=== PATIENT | female | born 1995 | race Caucasian/White ===

== ENCOUNTER 2018-07-07 10:37 | Emergency (ER) | payer OTHER ==
[2018-07-07 10:48] VITALS: BP 118/73
--- NOTE | 2018-07-07 10:50 | UC ---
Complaint Female HPI - HPI Summary HPI Summary: 23 yo female presents with urinary burning and pressure that began 2 days ago. She tells me that she has a history of UTIs and this feels the same. She took AZO otc with mild relief of symptoms. Denies fever, chills, abdominal pain, n/v/ d/c, flank pain, vaginal discharge/bleeding. - History Of Current Complaint Chief Complaint: UCGU Stated Complaint: URINARY COMPLAINT Time Seen by Provider: 07/07/18 10:49 Hx Obtained From: Patient Hx Last Menstrual Period: iud Onset/Duration: Sudden Onset Severity Initially: Mild Severity Currently: Moderate Pain Intensity: 6 Pain Scale Used: 0-10 Numeric - Allergies/Home Medications Allergies/Adverse Reactions: Allergies Allergy/AdvReac Type Severity Reaction Status Date / Time No Known Allergies Allergy Verified 07/07/18 10:48 PMH/Surg Hx/FS Hx/Imm Hx - Additional Past Medical History Additional PMH: None - Surgical History Surgical History: None - Family History Known Family History: Positive: None - Social History Occupation: Student Lives: Dormitory/Roommates Alcohol Use: Weekly Substance Use Type: None Smoking Status (MU): Never Smoked Tobacco Review of Systems Constitutional: Negative Skin: Negative Respiratory: Negative Cardiovascular: Negative Genitourinary: Dysuria, Frequency, Urgency Motor: Negative Neurovascular: Negative Neurological: Negative Psychological: Negative All Other Systems Reviewed And Are Negative: Yes Physical Exam - Summary Physical Exam Summary: GENERAL: NAD. WDWN. No pain distress. SKIN: No rashes, sores, lesions, or open wounds. NECK: Supple. Nontender. No lymphadenopathy. CHEST: CTAB. No r/r/w. No accessory muscle use. Breathing comfortably and in no distress. CV: RRR. Without m/r/g. Pulses intact. Cap refill <2seconds ABDOMEN: Soft. NTTP. No distention or guarding. No CVA tenderness. Bowel sounds present NEURO: Alert. PSYCH: Age appropriate behavior. Triage Information Reviewed: Yes Vital Signs: Initial Vital Signs Temp 97.6 F 07/07/18 10:44 Pulse 106 07/07/18 10:44 Resp 18 07/07/18 10:44 BP 118/73 07/07/18 10:44 Pulse Ox 98 07/07/18 10:44 Laboratory Tests 07/07/18 11:00 POC Urine Color [place] POC Urine Clarity Slightly cloudy POC Urine pH 5.5 POC Ur Specif [place] 1.015 POC Urine Protein Negative POC Ur Glucose (UA) Negative POC Urine Ketones Negative POC Urine Blood Negative POC Urine Nitrite Positive A POC Urine Bilirubin Negative POC Urine Urobilinogen 1.0 POC U Leukocyte Esteras Trace A Vital Signs Reviewed: Yes Complaint Female Dx - Course Course Of Treatment: UA with signs of infection. Will treat with macrobid and send urine for culture - Differential Dx/Diagnosis Provider Diagnoses: UTI Discharge - Sign-Out/Discharge Documenting (check all that apply): Patient Departure All imaging exams completed and their final reports reviewed: No Studies - Discharge Plan Condition: Stable Disposition: HOME Prescriptions: Nitrofurantoin Monohyd/M-Cryst [Macrobid 100 mg Capsule] 100 mg PO BID #10 cap Patient Education Materials: Urinary Tract Infection in Women (ED) Referrals: No Primary Care Phys,NOPCP [Primary Care Provider] - Additional Instructions: If you develop a fever, shortness of breath, chest pain, new or worsening symptoms - please call your PCP or go to the ED. - Billing Disposition and Condition Condition: STABLE Disposition: Home
== END 2018-07-07 11:14 | disposition home or self-care (01) ==
LOC: UCEAST 10:37
DX: N39.0 Urinary tract infection, site not specified (principal); Z87.440 Personal history of urinary (tract) infections
CPT/HCPCS: 81003; 87077; 87086; 87186; 99202; G0463

== ENCOUNTER 2018-08-10 20:43 | Emergency (ER) | payer OTHER ==
[2018-08-10 20:52] VITALS: BP 127/78
[2018-08-10] MEDS ORDERED: Acetaminophen TAB* 325 MG PO ONE (21:15)
--- NOTE | 2018-08-10 21:21 | ED ---
HPI Febrile Illness - HPI Summary HPI Summary: Patient here with acute onset fever, chills, headache, bilateral lower back pain as earlier today. She feels she's been getting progressively worse despite taking 2 rounds of 400 mg of ibuprofen. She denies URI symptoms such as sore throat, sneezing, coughing, nasal congestion however she does report a UTI diagnosed here last week. This started as severe lower pelvic cramping and pressure that progressed to her bilateral lower pelvic region. She did not have dysuria, urgency or frequency however she's had UTIs in the past and when she came here for evaluation was started on Bactrim. Her micro-report reveals Bactrim was effective against antibiotic. She admits she did feel better in regards to those symptoms and even still today denies dysuria, urgency, frequency. Additionally, she denies vaginal discharge or irritation. She is a college student admits she has been around people however she does not have any symptoms like they do. Denies nausea, vomiting, diarrhea however appetite is been depressed today. - History of Current Complaint Chief Complaint: UCAbdominalPain Time Seen by Provider: 08/10/18 20:47 Hx Obtained From: Patient, Family/Grape Cutter - male snow removal/plowing Hx Last Menstrual Period: iud Pain Intensity: 8 - Allergy/Home Medications Allergies/Adverse Reactions: Allergies Allergy/AdvReac Type Severity Reaction Status Date / Time No Known Allergies Allergy Verified 08/10/18 22:24 PMH/Surg Hx/FS Hx/Imm Hx Previously Healthy: Yes Infectious Disease History: No Infectious Disease History: Denies: Traveled Outside the [place] in Last 30 Days - Family History Known Family History: Positive: None - Social History Occupation: Student Lives: Dormitory/Roommates Alcohol Use: Weekly Hx Substance Use: No Substance Use Type: Reports: None Hx Tobacco Use: No Smoking Status (MU): Never Smoked Tobacco Review of Systems Positive: Fever, Chills Eyes: Negative ENT: Negative Cardiovascular: Negative Respiratory: Negative Gastrointestinal: Negative Positive: see HPI Skin: Negative Positive: Headache. Negative: Weakness, Paresthesia, Numbness, Syncope, Slurred Speech Psychological: Normal All Other Systems Reviewed And Are Negative: Yes Physical Exam Triage Information Reviewed: Yes Vital Signs On Initial Exam: Initial Vitals Temp Pulse Resp BP Pulse Ox 102.3 F 128 18 127/78 100 08/10/18 20:45 08/10/18 20:45 08/10/18 20:45 08/10/18 20:45 08/10/18 20:45 Vital Signs Reviewed: Yes Appearance: Positive: Well-Nourished, Ill-Appearing - shivering, pleasant Skin: Positive: Warm, Skin Color Reflects Adequate Perfusion, Dry - feverish to touch - no rash Head/Face: Positive: Normal Head/Face Inspection Eyes: Positive: Normal, EOMI, Conjunctiva Clear - sclera injected ENT: Positive: Normal ENT inspection, Hearing grossly normal, Pharynx normal - mucosa moist Neck: Positive: Supple, Nontender, No Lymphadenopathy Respiratory/Lung Sounds: Positive: Clear to Auscultation, Breath Sounds Present. Negative: Rales, Rhonchi, Wheezes Cardiovascular: Positive: Tachycardia, S1, S2. Negative: Murmur, Rub Abdomen Description: Positive: No Organomegaly, Soft, CVA Tenderness (R), CVA Tenderness (L), Other: - lower ab TTP - no rebounding Bowel Sounds: Positive: Present Pelvic Exam: Positive: Other - deferred Musculoskeletal: Positive: Normal, Strength/ROM Intact Neurological: Positive: Normal, Sensory/Motor Intact, Alert, Oriented to Person Place, Time, CN Intact II-III Psychiatric: Positive: Normal - concerned but in good spirits Diagnostics - Vital Signs Vital Signs Temp Pulse Resp BP Pulse Ox 08/10/18 20:45 102.3 F 128 18 127/78 100 - Laboratory Lab Statement: Any lab studies that have been ordered have been reviewed, and results considered in the medical decision making process. Course/Dx - Course Course Of Treatment: Suspect systemic infection from recent UTI, possibly pyelonephritis w/ flank pain - provided with PO acetaminophen and offered ambulance - pt will take PC via male snow removal/plowing. Vitals are concerning for possible sepsis - diff dx: viral syndrome. Spoke w/ Dianelys Ruiz PA-C at ED. Pt is stable at time of d/c. NOTE: although micro from recent UTI reveals sens to bactrim, it was ranked at <= 20. See report for details. - Diagnoses Provider Diagnoses: Fever Discharge - Sign-Out/Discharge Documenting (check all that apply): Patient Departure All imaging exams completed and their final reports reviewed: No Studies - Discharge Plan Condition: Stable Disposition: HOME-RECOMMEND TO ED Referrals: [facility] [Primary Care Provider] - Additional Instructions: Go directly to ED - Billing Disposition and Condition Condition: STABLE Disposition: Home-Recommend to ED - Attestation Statements Provider Attestation: I was available for consult. This patient was seen by the [facility]. The patient was not presented to, seen by, or examined by me. -Al
== END 2018-08-10 21:27 | disposition home health service (06) ==
LOC: UCEAST 20:43
DX: R50.9 Fever, unspecified (principal); R51 Headache; M54.5 Low back pain; R10.9 Unspecified abdominal pain
CPT/HCPCS: 99212; A9270-GY; G0463

== ENCOUNTER 2018-08-10 21:51 | Emergency (ER) | payer OTHER ==
[2018-08-10] MEDS ORDERED: NS 0.9% 1000 ML*IV.FLUID IV ONE (22:13)
[2018-08-10] MEDS ORDERED: cefTRIAXone(*) 1 GM in NS 0.9% 50 ML* 50 ML IVPB ONE (22:39)
[2018-08-10 23:21] LABS: ABS Basophils 0 10^3/ul (0-0.2); ABS Eosinophils 0.2 10^3/ul (0-0.6); ABS Lymphocytes 0.6 10^3/ul (1.0-4.8); ABS Monocytes 0.3 10^3/ul (0-0.8); ABS Neutrophils 2.9 10^3/ul (1.5-7.7); ABS Nucleated RBC 0 10^3/ul; Eosinophil % 4.6 % (0-6); Hematocrit 36 % (35-47); Hemoglobin 12.2 g/dl (12.0-16.0); Lymphocyte % 15.7 % (25-47); Mean Corpuscular HGB Conc 34 g/dl (31-36); Mean Corpuscular Hemoglobin 30 pg (27-31); Mean Corpuscular Volume 87 fL (80-97); Mean Platelet Volume 7.4 um3 (7.4-10.4); Nucleated Red Blood Cells % 0.1; Platelet Count 181 10^3/ul (150-450); Red Blood Count 4.11 10^6/ul (4.00-5.40); Red Cell Distribution Width 13 % (10.5-15)
--- NOTE | 2018-08-10 23:31 | RAD ---
EXAM: US Retroperitoneal Limited, Kidneys. EXAM DATE/TIME: 08/10/2018 11:00 PM CLINICAL HISTORY: 23 years old, female; Pain; Abdominal pain; Flank; Right; Additional info: Bilateral flank pain TECHNIQUE: Real-time ultrasound of the retroperitoneum with image documentation. Examination was focused on the kidneys. COMPARISON: No relevant prior studies available. FINDINGS: Right kidney: Right kidney measures 11.1 x 5.1 x 4.3 cm (127 cc). No solid cortical lesions, calculi, or pelvocaliectasis. Left kidney: Left kidney measures 11.7 x 5.4 x 4.9 cm (162 cc). Normal size and echogenicity with no masses. Normal follicles. Normal arterial and venous waveforms. IMPRESSION: Sonographically normal kidneys. To contact [facility] with a general question: Operations Center - [phone] For direct physician to physician contact: Physician Hotline - [phone] [facility] ([facility] Facility ID #[id number])
[2018-08-10 23:39] LABS: EGFR Non-African American 77.1 (>60)
[2018-08-11 00:22] LABS: Urine Appearance Clear; Urine Blood Negative (Negative); Urine Color Yellow; Urine Ketones Negative (Negative); Urine Protein Negative (Negative); Urine Urobilinogen Negative (Negative)
[2018-08-11] MEDS ORDERED: Ibuprofen TAB* 600 MG PO ONE (00:31)
--- NOTE | 2018-08-11 01:41 | ED ---
HPI Febrile Illness - HPI Summary HPI Summary: 23-year-old female presents with fever since this afternoon. She states that she is also been having some flank pain. She states she gets occasional pain into her legs. She states she feels very achy. No abdominal pain. No nausea no vomiting. No diarrhea constipation. She states treated for UTI infection. She still states her last dose of bactrim is today. bactrim was sensitive. She states she was seen in urgent care and given Tylenol prior to arrival. She denies any chest pain or shortness breath. No cough. No sinus congestion or sore throat. No headache. She denies any history of kidney infections. No medical conditions. no history of back sugeries or IV drug use. no saddle anasethesia or loss of bowel or bladder. no difficulties ambulating. no neck pain. no photophobia. no urinary symptoms. no abnormal vaginal discharge. - History of Current Complaint Chief Complaint: EDGeneral Time Seen by Provider: 08/10/18 22:13 Hx Last Menstrual Period: iud Pain Intensity: 6 - Allergy/Home Medications Allergies/Adverse Reactions: Allergies Allergy/AdvReac Type Severity Reaction Status Date / Time No Known Allergies Allergy Verified 08/10/18 22:24 PMH/Surg Hx/FS Hx/Imm Hx Endocrine/Hematology History: Denies: Hx Anticoagulant Therapy Respiratory History: Denies: Hx Asthma - Immunization History Date of Tetanus Vaccine: utd Date of Influenza Vaccine: 07/2018 Infectious Disease History: No Infectious Disease History: Denies: Traveled Outside the US in Last 30 Days - Family History Known Family History: Positive: None - Social History Alcohol Use: Weekly Hx Substance Use: No Substance Use Type: Reports: None Hx Tobacco Use: No Smoking Status (MU): Never Smoked Tobacco Review of Systems Positive: Fever Negative: Chest Pain Negative: Shortness Of Breath Negative: Abdominal Pain Positive: flank pain All Other Systems Reviewed And Are Negative: Yes Physical Exam Triage Information Reviewed: Yes Vital Signs On Initial Exam: Initial Vitals Temp Pulse Resp BP Pulse Ox 98.7 F 134 18 114/68 97 08/10/18 21:53 08/10/18 21:53 08/10/18 21:53 08/10/18 21:53 08/10/18 21:53 Vital Signs Reviewed: Yes Appearance: Positive: Well-Appearing Skin: Positive: Warm, Dry Head/Face: Positive: Normal Head/Face Inspection Eyes: Positive: Normal, EOMI, BRITT, Conjunctiva Clear ENT: Positive: Normal ENT inspection, Pharynx normal, TMs normal Neck: Positive: Supple, Nontender, No Lymphadenopathy Respiratory/Lung Sounds: Positive: Clear to Auscultation, Breath Sounds Present Cardiovascular: Positive: Normal, RRR Abdomen Description: Positive: Nontender, Soft, CVA Tenderness (R), CVA Tenderness (L) Bowel Sounds: Positive: Present Musculoskeletal: Positive: Normal Neurological: Positive: Normal, Babinski Bilateral - normal Psychiatric: Positive: Normal Diagnostics - Vital Signs Vital Signs Temp Pulse Resp BP Pulse Ox 08/11/18 00:29 110 20 95/55 100 08/11/18 00:27 110 20 64/46 96 08/11/18 00:06 115 100 08/10/18 23:54 98 31 103/70 98 08/10/18 23:28 101 19 97 08/10/18 23:23 102 22 105/62 96 08/10/18 23:00 106 20 97 08/10/18 22:53 102 17 98/45 96 08/10/18 22:27 118 16 97/58 97 08/10/18 22:19 223 98 08/10/18 21:53 98.7 F 134 18 114/68 97 - Laboratory Lab Results: Lab Results 08/10/18 08/10/18 08/10/18 Range/Units 23:13 23:13 23:13 WBC 4.0 (3.5-10.8) 10^3/ul RBC 4.11 (4.00-5.40) 10^6/ul Hgb 12.2 (12.0-16.0) g/dl Hct 36 (35-47) % MCV 87 (80-97) fL MCH 30 (27-31) pg MCHC 34 (31-36) g/dl RDW 13 (10.5-15) % Plt Count 181 (150-450) 10^3/ul MPV 7.4 (7.4-10.4) um3 Neut % (Auto) 71.6 (38-83) % Lymph % (Auto) 15.7 L (25-47) % [place] % (Auto) 8.0 H (0-7) % Eos % (Auto) 4.6 (0-6) % Baso % (Auto) 0.1 (0-2) % Absolute Neuts (auto) 2.9 (1.5-7.7) 10^3/ul Absolute Lymphs (auto) 0.6 L (1.0-4.8) 10^3/ul Absolute Monos (auto) 0.3 (0-0.8) 10^3/ul Absolute Eos (auto) 0.2 (0-0.6) 10^3/ul Absolute Basos (auto) 0 (0-0.2) 10^3/ul Absolute Nucleated RBC 0 10^3/ul Nucleated RBC % 0.1 Sodium 135 (135-145) mmol/L Potassium 3.6 (3.5-5.0) mmol/L Chloride 106 (101-111) mmol/L Carbon Dioxide 23 (22-32) mmol/L Anion Gap 6 (2-11) mmol/L BUN 16 (6-24) mg/dL Creatinine 0.92 (0.51-0.95) mg/dL Est GFR ( Amer) 93.2 (>60) Est GFR (Non-Af Amer) 77.1 (>60) BUN/Creatinine Ratio 17.4 (8-20) Glucose 98 (70-100) mg/dL Lactic Acid 0.6 (0.5-2.0) mmol/L Calcium 8.7 (8.6-10.3) mg/dL Total Bilirubin 0.60 (0.2-1.0) mg/dL AST 17 (13-39) U/L ALT 16 (7-52) U/L Alkaline Phosphatase 59 (34-104) U/L C-Reactive Protein 14.08 H (<8.01) mg/L Total Protein 6.4 (6.4-8.9) g/dL Albumin 3.8 (3.2-5.2) g/dL Globulin 2.6 (2-4) g/dL Albumin/Globulin Ratio 1.5 (1-3) Procalcitonin (<0.6) ng/mL Beta HCG, Quant < 0.60 mIU/mL Urine Color Urine Appearance Urine pH (5-9) Ur Specific [place] (1.010-1.030) Urine Protein (Negative) Urine Ketones (Negative) Urine Blood (Negative) Urine Nitrate (Negative) Urine Bilirubin (Negative) Urine Urobilinogen (Negative) Ur Leukocyte Esterase (Negative) Urine Glucose (Negative) Monoscreen (Negative) Influenza A (Rapid) (Negative) Influenza B (Rapid) (Negative) 08/10/18 08/10/18 08/11/18 Range/Units 23:13 23:13 00:03 WBC (3.5-10.8) 10^3/ul RBC (4.00-5.40) 10^6/ul Hgb (12.0-16.0) g/dl Hct (35-47) % MCV (80-97) fL MCH (27-31) pg MCHC (31-36) g/dl RDW (10.5-15) % Plt Count (150-450) 10^3/ul MPV (7.4-10.4) um3 Neut % (Auto) (38-83) % Lymph % (Auto) (25-47) % [place] % (Auto) (0-7) % Eos % (Auto) (0-6) % Baso % (Auto) (0-2) % Absolute Neuts (auto) (1.5-7.7) 10^3/ul Absolute Lymphs (auto) (1.0-4.8) 10^3/ul Absolute Monos (auto) (0-0.8) 10^3/ul Absolute Eos (auto) (0-0.6) 10^3/ul Absolute Basos (auto) (0-0.2) 10^3/ul Absolute Nucleated RBC 10^3/ul Nucleated RBC % Sodium (135-145) mmol/L Potassium (3.5-5.0) mmol/L Chloride (101-111) mmol/L Carbon Dioxide (22-32) mmol/L Anion Gap (2-11) mmol/L BUN (6-24) mg/dL Creatinine (0.51-0.95) mg/dL Est GFR ( Amer) (>60) Est GFR (Non-Af Amer) (>60) BUN/Creatinine Ratio (8-20) Glucose (70-100) mg/dL Lactic Acid (0.5-2.0) mmol/L Calcium (8.6-10.3) mg/dL Total Bilirubin (0.2-1.0) mg/dL AST (13-39) U/L ALT (7-52) U/L Alkaline Phosphatase (34-104) U/L C-Reactive Protein (<8.01) mg/L Total Protein (6.4-8.9) g/dL Albumin (3.2-5.2) g/dL Globulin (2-4) g/dL Albumin/Globulin Ratio (1-3) Procalcitonin < 0.1 (<0.6) ng/mL Beta HCG, Quant mIU/mL Urine Color Yellow Urine Appearance Clear Urine pH 7.0 (5-9) Ur Specific [place] 1.010 (1.010-1.030) Urine Protein Negative (Negative) Urine Ketones Negative (Negative) Urine Blood Negative (Negative) Urine Nitrate Negative (Negative) Urine Bilirubin Negative (Negative) Urine Urobilinogen Negative (Negative) Ur Leukocyte Esterase Negative (Negative) Urine Glucose Negative (Negative) Monoscreen Negative (Negative) Influenza A (Rapid) (Negative) Influenza B (Rapid) (Negative) 08/11/18 Range/Units 00:13 WBC (3.5-10.8) 10^3/ul RBC (4.00-5.40) 10^6/ul Hgb (12.0-16.0) g/dl Hct (35-47) % MCV (80-97) fL MCH (27-31) pg MCHC (31-36) g/dl RDW (10.5-15) % Plt Count (150-450) 10^3/ul MPV (7.4-10.4) um3 Neut % (Auto) (38-83) % Lymph % (Auto) (25-47) % [place] % (Auto) (0-7) % Eos % (Auto) (0-6) % Baso % (Auto) (0-2) % Absolute Neuts (auto) (1.5-7.7) 10^3/ul Absolute Lymphs (auto) (1.0-4.8) 10^3/ul Absolute Monos (auto) (0-0.8) 10^3/ul Absolute Eos (auto) (0-0.6) 10^3/ul Absolute Basos (auto) (0-0.2) 10^3/ul Absolute Nucleated RBC 10^3/ul Nucleated RBC % Sodium (135-145) mmol/L Potassium (3.5-5.0) mmol/L Chloride (101-111) mmol/L Carbon Dioxide (22-32) mmol/L Anion Gap (2-11) mmol/L BUN (6-24) mg/dL Creatinine (0.51-0.95) mg/dL Est GFR ( Amer) (>60) Est GFR (Non-Af Amer) (>60) BUN/Creatinine Ratio (8-20) Glucose (70-100) mg/dL Lactic Acid (0.5-2.0) mmol/L Calcium (8.6-10.3) mg/dL Total Bilirubin (0.2-1.0) mg/dL AST (13-39) U/L ALT (7-52) U/L Alkaline Phosphatase (34-104) U/L C-Reactive Protein (<8.01) mg/L Total Protein (6.4-8.9) g/dL Albumin (3.2-5.2) g/dL Globulin (2-4) g/dL Albumin/Globulin Ratio (1-3) Procalcitonin (<0.6) ng/mL Beta HCG, Quant mIU/mL Urine Color Urine Appearance Urine pH (5-9) Ur Specific [place] (1.010-1.030) Urine Protein (Negative) Urine Ketones (Negative) Urine Blood (Negative) Urine Nitrate (Negative) Urine Bilirubin (Negative) Urine Urobilinogen (Negative) Ur Leukocyte Esterase (Negative) Urine Glucose (Negative) Monoscreen (Negative) Influenza A (Rapid) Negative (Negative) Influenza B (Rapid) Negative (Negative) Result Diagrams: 08/10/18 23:13 08/10/18 23:13 Lab Statement: Any lab studies that have been ordered have been reviewed, and results considered in the medical decision making process. - Radiology chest Radiology Interpretation Completed By: ED Physician Summary of Radiographic Findings: no pneumonia Course/Dx - Course Course Of Treatment: 23-year-old female presents with fever since this afternoon. She states that she is also been having some flank pain. She states she gets occasional pain into her legs. She states she feels very achy. No abdominal pain. No nausea no vomiting. No diarrhea constipation. She states treated for UTI infection. She still states her last dose of bactrim is today. bactrim was sensitive. She states she was seen in urgent care and given Tylenol prior to arrival. She denies any chest pain or shortness breath. No cough. No sinus congestion or sore throat. No headache. She denies any history of kidney infections. No medical conditions. no history of back sugeries or IV drug use. no saddle anasethesia or loss of bowel or bladder. no difficulties ambulating. no neck pain. no photophobia. On exam tenderness to bilateral flanks. Nontender abdomen. Lungs clear to auscultation. Chest x- ray read by me as normal. Labs white blood count normal. CRP elevated. procalcontin and lactic normal. Urine shows no infection. Gave fluids and ibuprofen and tachycardia persists. Discuss case with Dr. Hicks says is likely either viral or could be reaction to the Bactrim. Told to stop the Bactrim. Told to continue Tylenol ibuprofen. Told if anything changes to return to ED. Patient understands agrees with plan. - Febrile Illness Differential Diagnoses: Pneumonia, Pyelonephritis, Viremia - Diagnoses Provider Diagnoses: Fever Discharge - Sign-Out/Discharge Documenting (check all that apply): Patient Departure - Discharge Plan Condition: Good Disposition: HOME Patient Education Materials: Fever in Adults (ED) Referrals: [facility] [Primary Care Provider] - Additional Instructions: follow up with [facility] within 2 days Return to ED if develop any new or worsening symptoms Take tyenlol or ibuprofen every 6 hours for fever - Billing Disposition and Condition Condition: GOOD Disposition: Home
[2018-08-11 01:51] VITALS: BP 95/49
--- NOTE | 2018-08-11 08:12 | RAD ---
Indication: Fever. 2 views of the chest including dual energy PA views demonstrate no mediastinal shift. Heart is of normal size and configuration. Lung buchanan are clear. No prior study is available for comparison. IMPRESSION: No active cardiopulmonary disease is noted. R0
== END 2018-08-11 01:51 | disposition home or self-care (01) ==
LOC: ED 21:51
DX: R50.9 Fever, unspecified (principal); R10.84 Generalized abdominal pain
CPT/HCPCS: 36415; 71046; 76775; 80053; 81003; 83605; 84145; 84702; 85025; 86140; 86308; 87040; 96365; 99283; A9270-GY; J0696

== ENCOUNTER 2018-11-24 19:09 | Emergency (ER) | payer OTHER ==
[2018-11-24 19:20] VITALS: BP 109/73
--- NOTE | 2018-11-24 20:18 | UC ---
Complaint Female HPI - HPI Summary HPI Summary: The patient is a 23-year-old female with about a 12 hour history of dysuria urgency and frequency. No fever or chills. No nausea or vomiting. No vaginal discharge or itching. History of pyleo or kidney stones. - History Of Current Complaint Chief Complaint: UCGU Stated Complaint: UTI Hx Obtained From: Patient Hx Last Menstrual Period: 11/13/18 Onset/Duration: Gradual Onset, Lasting Hours Timing: Constant Severity Initially: Mild Severity Currently: Moderate Pain Intensity: 7 - when urinating Pain Scale Used: 0-10 Numeric Character: Burning Aggravating Factor(s): Urination Associated Signs And Symptoms: Negative: Fever, Back Pain, Vaginal Bleeding/ Discharge, Vaginal Discharge, Nausea, Vomiting(# Of Episodes =), Genital Swelling, Genital Blisters, Retained Foregin Body (Specify) Related Hx: Similar Episode/Dx as: - UTI - Allergies/Home Medications Allergies/Adverse Reactions: Allergies Allergy/AdvReac Type Severity Reaction Status Date / Time Sulfa (Sulfonamide Allergy Rash Verified 11/24/18 19:20 Antibiotics) PMH/Surg Hx/FS Hx/Imm Hx Previously Healthy: Yes Other History Of: Negative For: Anticoagulant Therapy - Surgical History Surgical History: None - Family History Known Family History: Positive: Hypertension - Social History Alcohol Use: Weekly Substance Use Type: None Substance Use Comment - Amount & Last Used: very occasional Smoking Status (MU): Never Smoked Tobacco Review of Systems All Other Systems Reviewed And Are Negative: Yes Constitutional: Positive: Negative Skin: Positive: Negative Eyes: Positive: Negative ENT: Positive: Negative Respiratory: Positive: Negative Cardiovascular: Positive: Negative Gastrointestinal: Positive: Negative Genitourinary: Positive: Dysuria, Frequency, Urgency Motor: Positive: Negative Neurovascular: Positive: Negative Musculoskeletal: Positive: Negative Neurological: Positive: Negative Psychological: Positive: Negative Physical Exam Triage Information Reviewed: Yes Appearance: Well-Appearing, No Pain Distress, Well-Nourished Vital Signs: Initial Vital Signs Temp 97 F 11/24/18 19:17 Pulse 73 11/24/18 19:17 Resp 18 11/24/18 19:17 BP 109/73 11/24/18 19:17 Pulse Ox 100 11/24/18 19:17 Vital Signs Reviewed: Yes Eyes: Positive: Conjunctiva Clear ENT: Positive: Hearing grossly normal. Negative: Pharyngeal erythema, Nasal congestion, Nasal drainage, Tonsillar exudate, Trismus, Muffled voice, Hoarse voice Neck: Positive: Supple, Nontender Respiratory: Positive: Lungs clear, Normal breath sounds, No respiratory distress, No accessory muscle use Cardiovascular: Positive: RRR, No Murmur Abdomen Description: Positive: Nontender, No Organomegaly. Negative: CVA Tenderness (R), CVA Tenderness (L) Bowel Sounds: Positive: Present Musculoskeletal: Positive: ROM Intact Neurological: Positive: Alert Psychological Exam: Normal Skin Exam: Normal Complaint Female Dx - Differential Dx/Diagnosis Provider Diagnosis: UTI (urinary tract infection) Discharge - Sign-Out/Discharge Documenting (check all that apply): Patient Departure All imaging exams completed and their final reports reviewed: No Studies - Discharge Plan Condition: Stable Disposition: HOME Prescriptions: Cephalexin CAP* [Keflex CAP*] 500 mg PO BID #10 cap Phenazopyridine TAB* [Pyridium TAB*] 100 mg PO TID #6 tab Patient Education Materials: Urinary Tract Infection in Women (ED) Referrals: No Primary Care Phys,NOPCP [Primary Care Provider] - Additional Instructions: recheck in 2 days if not better a culture is pending - Billing Disposition and Condition Condition: STABLE Disposition: Home
[2018-11-24] MEDS ORDERED: Cephalexin CAP* 500 MG PO ONE (20:25)
[2018-11-24] MEDS ORDERED: Phenazopyridine TAB* 100 MG PO ONE (20:25)
--- NOTE | 2018-11-26 17:06 | UC ---
- Progress Note Progress Note: 11/26/2018 Urine culture positive for E.Coli Pt Rx Keflex PO which cover it Final sensitivity reports still pending No change Pura Lobato PA-C Course/Dx - Diagnoses Provider Diagnoses: UTI (urinary tract infection) Discharge - Sign-Out/Discharge Documenting (check all that apply): Patient Departure - d/c home All imaging exams completed and their final reports reviewed: No Studies - Discharge Plan Condition: Stable Disposition: HOME Prescriptions: Cephalexin CAP* [Keflex CAP*] 500 mg PO BID #10 cap Phenazopyridine TAB* [Pyridium TAB*] 100 mg PO TID #6 tab Patient Education Materials: Urinary Tract Infection in Women (ED) Referrals: No Primary Care Phys,NOPCP [Primary Care Provider] - Additional Instructions: recheck in 2 days if not better a culture is pending - Billing Disposition and Condition Condition: STABLE Disposition: Home
== END 2018-11-24 20:37 | disposition home or self-care (01) ==
LOC: UCEAST 19:09
DX: N39.0 Urinary tract infection, site not specified (principal); Z88.2 Allergy status to sulfonamides
CPT/HCPCS: 81003; 87077; 87086; 87186; 99212; A9270-GY; G0463

== ENCOUNTER 2019-01-07 21:32 | Emergency (ER) | payer OTHER ==
[2019-01-07 21:47] VITALS: BP 118/86
--- NOTE | 2019-01-07 21:49 | UC ---
Complaint Female HPI - HPI Summary HPI Summary: 23-year-old woman comes in with a chief complaint of burning with urination and increased urinary frequency for this last several hours. She does have some suprapubic discomfort. Also some discomfort in the low back. No flank pain. No fever. She's having her period now. Denies any concern of STI. - History Of Current Complaint Stated Complaint: FREQUENT URINATION Time Seen by Provider: 01/07/19 21:39 Hx Last Menstrual Period: 11/13/18 - Allergies/Home Medications Allergies/Adverse Reactions: Allergies Allergy/AdvReac Type Severity Reaction Status Date / Time Sulfa (Sulfonamide Allergy Rash Verified 01/07/19 21:47 Antibiotics) Home Medications: Home Medications Ibuprofen TAB* [Advil TAB*] 400 mg PO PRN 01/07/19 [History] PMH/Surg Hx/FS Hx/Imm Hx Previously Healthy: Yes Other History Of: Negative For: Anticoagulant Therapy - Surgical History Surgical History: None - Family History Known Family History: Positive: None, Hypertension - Social History Alcohol Use: Weekly Substance Use Type: None Substance Use Comment - Amount & Last Used: very occasional Smoking Status (MU): Never Smoked Tobacco Review of Systems All Other Systems Reviewed And Are Negative: Yes Constitutional: Positive: Negative Skin: Positive: Negative Eyes: Positive: Negative ENT: Positive: Negative Respiratory: Positive: Negative Cardiovascular: Positive: Negative Gastrointestinal: Positive: Abdominal Pain Genitourinary: Positive: Dysuria, Frequency, Urgency Motor: Positive: Negative Neurovascular: Positive: Negative Musculoskeletal: Positive: Negative Neurological: Positive: Negative Psychological: Positive: Negative Is Patient Immunocompromised?: No Physical Exam Triage Information Reviewed: Yes Appearance: Well-Appearing, No Pain Distress, Well-Nourished Vital Signs Reviewed: Yes Eye Exam: Normal Eyes: Positive: Conjunctiva Clear Neck exam: Normal Neck: Positive: Supple Respiratory: Positive: Lungs clear, Normal breath sounds, No respiratory distress Cardiovascular: Positive: RRR Abdomen Description: Positive: Other: - MILD SUPRAPUBIC TENDERNESS. Negative: CVA Tenderness (R), CVA Tenderness (L) Musculoskeletal Exam: Normal Musculoskeletal: Positive: Strength Intact, ROM Intact Neurological Exam: Normal Neurological: Positive: Alert, Muscle Tone Normal Psychological Exam: Normal Psychological: Positive: Age Appropriate Behavior Skin Exam: Normal Complaint Female Dx - Differential Dx/Diagnosis Provider Diagnosis: UTI (urinary tract infection) Discharge - Sign-Out/Discharge Documenting (check all that apply): Patient Departure All imaging exams completed and their final reports reviewed: No Studies - Discharge Plan Condition: Stable Disposition: HOME Prescriptions: Cephalexin CAP* [Keflex CAP*] 500 mg PO BID #8 cap Patient Education Materials: Urinary Tract Infection in Women (ED) Referrals: [facility] @ [Outside] Additional Instructions: FOLLOW UP WITH YOUR DOCTOR IF NOT COMPLETELY IMPROVED. GET REEVALUATED SOONER IF YOUR CONDITION WORSENS OR ANY QUESTIONS OR CONCERNS. - Billing Disposition and Condition Condition: STABLE Disposition: Home
[2019-01-07] MEDS ORDERED: Cephalexin CAP* 500 MG PO ONE ×2 (21:51→21:52)
--- NOTE | 2019-01-10 16:26 | UC ---
- Progress Note Progress Note: 01/10/2019 Urine culture: positive for E.coli Pt Rx Kelflex PO Final reports shows sensitivity for Kelflex PO No change Pura Lobato PA-C Course/Dx - Diagnoses Provider Diagnoses: UTI (urinary tract infection) Discharge - Sign-Out/Discharge Documenting (check all that apply): Post-Discharge Follow Up All imaging exams completed and their final reports reviewed: No Studies - Discharge Plan Condition: Stable Disposition: HOME Prescriptions: Cephalexin CAP* [Keflex CAP*] 500 mg PO BID #8 cap Patient Education Materials: Urinary Tract Infection in Women (ED) Referrals: [facility] @ [Outside] Additional Instructions: FOLLOW UP WITH YOUR DOCTOR IF NOT COMPLETELY IMPROVED. GET REEVALUATED SOONER IF YOUR CONDITION WORSENS OR ANY QUESTIONS OR CONCERNS. - Billing Disposition and Condition Condition: STABLE Disposition: Home
== END 2019-01-07 22:10 | disposition home or self-care (01) ==
LOC: UCEAST 21:32
DX: N39.0 Urinary tract infection, site not specified (principal); Z88.2 Allergy status to sulfonamides
CPT/HCPCS: 81003; 84702; 87077; 87086; 87186; 99212; A9270-GY; G0463

== ENCOUNTER 2019-08-01 07:26 | Emergency (ER) | payer OTHER ==
[2019-08-01 07:39] VITALS: BP 136/72
[2019-08-01] MEDS ORDERED: Dexamethasone IV* 4 MG/ML 1 ML (4 MG) IM ONE (08:11)
[2019-08-01] MEDS ORDERED: Cyclobenzaprine TAB* 10 MG PO ONE (08:11)
[2019-08-01] MEDS ORDERED: Ketorolac *IM* INJ* 60 MG/2 ML VIAL IM ONE (08:11)
--- NOTE | 2019-08-01 08:18 | UC ---
Back Pain HPI - HPI Summary HPI Summary: This patient is a 24-year-old female who presents to the urgent care with a chief complaint of back pain. She reports that couple days, she was working on the gym since then the patient is having back pain which is worse today. The pain is in the lumbar region and it radiates to her gluteus and lower extremity. She denies any numbness, denies any weakness she is able to ambulate which she makes her feel better. He becomes worse when she bends over or when she stands up. She denies any fever, or any other symptom. - History of Current Complaint Chief Complaint: UCBackPain Stated Complaint: BACK PAIN Time Seen by Provider: 08/01/19 07:43 Hx Obtained From: Patient Hx Last Menstrual Period: 07/07/19 ?: No Onset/Duration: Gradual Onset Timing: Constant Severity Initially: Mild Severity Currently: Moderate Pain Intensity: 6 - Allergies/Home Medications Allergies/Adverse Reactions: Allergies Allergy/AdvReac Type Severity Reaction Status Date / Time Sulfa (Sulfonamide Allergy Rash Verified 08/01/19 07:39 Antibiotics) Home Medications: Home Medications Copper (Iud) [Paragard IUD] 1 unit IU 08/01/19 [History] PMH/Surg Hx/FS Hx/Imm Hx Previously Healthy: Yes Other History Of: Negative For: Anticoagulant Therapy - Surgical History Surgical History: None - Family History Known Family History: Positive: None, Hypertension - Social History Alcohol Use: Weekly Substance Use Type: None Substance Use Comment - Amount & Last Used: very occasional Smoking Status (MU): Never Smoked Tobacco Review of Systems All Other Systems Reviewed And Are Negative: Yes Constitutional: Positive: Negative Skin: Positive: Negative Eyes: Positive: Negative ENT: Positive: Negative Respiratory: Positive: Negative Cardiovascular: Positive: Negative Gastrointestinal: Positive: Negative Genitourinary: Positive: Negative Motor: Positive: Negative Neurovascular: Positive: Negative Musculoskeletal: Positive: Other: - Julissa pain Neurological: Positive: Negative Psychological: Positive: Negative Is Patient Immunocompromised?: No Physical Exam - Summary Physical Exam Summary: General: Patient is an obese female without any distress that is lying comfortably in the stretcher. Skin: [place], warm, dry HEAD AND FACE: No signs of trauma. EYES: PERRLA, EOMI x 2. EARS: Hearing grossly intact. MOUTH: Oropharynx within normal limits. NECK: Supple, trachea is midline, no adenopathy, no JVD. CHEST: Symmetric, no tenderness at palpation LUNGS: CTA bilaterally, no rales, rhonchi or wheezing CVS: RRR, no murmurs, rubs, or gallops ABDOMEN: soft and Nontender without masses, no guarding or rebound. Bowel sounds are active. No Hepatosplenomegaly. No signs of inguinal hernias. BACK: Patient walked in to the room with symmetric ambulation, No signs of limping, antalgic, able to bear weight. No signs of trauma, no soft tissue ecchymosis. Positive paraspinal muscle tenderness in the lumbar spine. No masses palpated. No point tenderness. No CVAT, no flank ecchymosis . No sacroiliac notch tenderness, No saddle anesthesia. ROM: flexion, extension, lateral bending and rotation limited secondary to pain. Straight Leg Raise: Negative. Patellar reflexes: brisk, symmetric Muscle strength lower extremities: Dorsiflexion, plantar flexion of ankles normal. Heel, toe walk normal. Pulses: Femoral, popliteal, posterior tibial, and pedal pulses strong and palpable. Rectal: Patient refused the exam. Triage Information Reviewed: Yes Appearance: Well-Appearing Vital Signs: Initial Vital Signs Temp 97.4 F 08/01/19 07:35 Pulse 75 08/01/19 07:35 Resp 16 08/01/19 07:35 BP 136/72 08/01/19 07:35 Pulse Ox 100 08/01/19 07:35 Vital Signs Reviewed: Yes Back Pain Course/Dx - Course Course Of Treatment: Urinalysis is negative for UTI. U test is negative. History of the lumbar spine is negative for an acute fracture dislocation. In the UC course the patient was given Toradol, Decadron, and Flexeril for the pain. At this point I discussed my physical exam and findings with the patient and the need to follow with the primary care physician. She was given instructions to return to the urgent care or the emergency department if she develops any weakness or numbness in the lower extremities or intermittent back pain worsens. She understands and agrees. - Differential Dx/Diagnosis Provider Diagnosis: Back pain Discharge ED - Sign-Out/Discharge Documenting (check all that apply): Patient Departure All imaging exams completed and their final reports reviewed: Yes - Discharge Plan Condition: Improved Disposition: HOME Prescriptions: Cyclobenzaprine TAB* [Flexeril 10 MG TAB*] 10 mg PO TID PRN #12 tab PRN Reason: Spasms - Back Ibuprofen TAB* [Motrin TAB* 600 MG] 600 mg PO Q8H PRN #30 tab PRN Reason: Pain - Moderate methylPREDNISolone [Medrol Dosepak 4 MG*] 0 mg PO .SEE AMANDEEP INSTRUCTION #1 tab Patient Education Materials: Low Back Strain (ED) Forms: *Work Release Referrals: [facility] [place] [facility] [Outside] No Primary Care Phys,NOPCP [Primary Care Provider] - Additional Instructions: Take medications as instructed Increase your fluid intake F/U with PCP in the next 2-3 days Return to the UC if symptoms worsen - Billing Disposition and Condition Condition: IMPROVED Disposition: Home
== END 2019-08-01 08:55 | disposition home or self-care (01) ==
LOC: UCEAST 07:26
DX: M54.9 Dorsalgia, unspecified (principal); M79.606 Pain in leg, unspecified; E66.9 Obesity, unspecified; Z88.2 Allergy status to sulfonamides
CPT/HCPCS: 72100; 81003; 84702; 96372; 99212; A9270-GY; G0463; J1100; J1885